=== PATIENT | female | born 1980 | race American Indian/Alaskan Native ===

== ENCOUNTER 2021-01-16 08:50 | Emergency (ER) | payer MEDICAID ==
--- NOTE | 2021-01-16 09:21 | Event Note ---
ED Screening Note Date of service: 01/16/21 Time: 09:16 ED Screening Note: 40-year-old -Faro[place] female presents to the emergency room complaining of dizziness weakness headache nausea vomiting. Patient reports a past medical history of hypertension and lupus. Patient states she does not know what blood pressure medication that she takes but just started it yesterday. Patient reports she is had a last menstrual period was 01/10/2021. Should has a primary care doctor Dr. Waqar Baez. Has had no recent hospitalization. Comes in with blood pressure 153/116 pulse was 131 99% on room air. EKG shows PVCs tachycardic. This initial assessment/diagnostic orders/clinical plan/treatment(s) is/are subject to change based on patients health status, clinical progression and re- assessment by fellow clinical providers in the ED. Further treatment and workup at subsequent clinical providers discretion. Patient/guardian urged not to elope from the ED as their condition may be serious if not clinically assessed and managed. Initial orders include: CBC CMP EKG chest x-ray TSH hCG
--- NOTE | 2021-01-16 09:30 | Emergency Department Report ---
- General Chief complaint: Weakness Stated complaint: SYNCOPE PUI?: No Time Seen by Provider: 01/16/21 09:15 Source: patient Mode of arrival: Wheelchair Limitations: No Limitations - History of Present Illness Initial comments: Chief complaint: "I feel like I am going to pass out." HPI: This is a 40-year-old female with history of hypertension and SLE who presents with lightheadedness, feeling faint. She became ill on yesterday. She feels dizzy and weak. She has shortness of breath. She had one episode of vomiting. She denies diarrhea. She has posterior dull headache. She has blurry vision with exertion. No sick contacts. No recent hospitalizations. No recent travel. She was evaluated by EMS on yesterday. She was informed that her blood pressure was high. She was not transported to medical facility. She takes prednisone 10 mg daily. She is followed by tectonophysicist at [place] [address]. Neal. She also takes 1 medication for hypertension. LMP last week. She states that she had a syncopal episode 1 to 2 months ago. She received 2 doses of [employer] vaccine several months ago. Ms. Ellison drinks 8 ounces of alcohol every other day. Has had palpitations for several months MD Complaint: generalized weakness -: Gradual, days(s) (1 day, symptoms started yesterday) Location: generalized Severity: severe Consistency: constant Worsens with: exertion Associated Symptoms: headaches, shortness of breath - Related Data Home Medications Medication Instructions Recorded Confirmed Last Taken predniSONE 10 mg (6-Day Pack, 21 10 mg DAILY 01/16/21 01/16/21 01/15/21 Tabs) Allergies Allergy/AdvReac Type Severity Reaction Status Date / Time No Known Allergies Allergy Verified 01/16/21 09:01 ED Review of Systems ROS: Stated complaint: SYNCOPE Other details as noted in HPI Comment: All other systems reviewed and negative Constitutional: malaise. denies: chills, fever Respiratory: shortness of breath. denies: cough Cardiovascular: denies: chest pain Gastrointestinal: vomiting. denies: abdominal pain, diarrhea Neurological: headache ED Past Medical Hx - Past Medical History Previous Medical History?: Yes Hx Hypertension: Yes Additional medical history: lupus - Surgical History Past Surgical History?: Yes Additional Surgical History: x2 - Social History Smoking Status: Current Every Day Smoker Substance Use Type: Alcohol - Medications Home Medications: Home Medications Medication Instructions Recorded Confirmed Last Taken Type predniSONE 10 mg (6-Day Pack, 21 10 mg DAILY 01/16/21 01/16/21 01/15/21 History Tabs) ED Physical Exam - General Limitations: No Limitations General appearance: alert, in no apparent distress - Head Head exam: Present: atraumatic, normocephalic - Eye Eye exam: Present: normal appearance - ENT ENT exam: Present: mucous membranes moist - Neck Neck exam: Present: normal inspection, full ROM - Respiratory Respiratory exam: Present: normal lung sounds bilaterally. Absent: respiratory distress, wheezes, rales, rhonchi - Cardiovascular Cardiovascular Exam: Present: normal rhythm, tachycardia, normal heart sounds. Absent: systolic murmur, diastolic murmur, rubs, gallop - GI/Abdominal GI/Abdominal exam: Present: soft, normal bowel sounds. Absent: distended, tenderness, guarding, rebound - Extremities Exam Extremities exam: Present: normal inspection - Back Exam Back exam: Present: normal inspection - Neurological Exam Neurological exam: Present: alert, oriented X3 - Psychiatric Psychiatric exam: Present: depressed, flat affect - Skin Skin exam: Present: warm, dry, intact, normal color. Absent: rash ED Course Vital Signs 01/16/21 09:01 Temperature 98 F Pulse Rate 131 H Respiratory 16 Rate Blood Pressure 153/116 [Left] O2 Sat by Pulse 99 Oximetry - EJ/Peripheral Line Arm R Time Out Performed: No Indications: nurses unable to establis, multiple IV sites needed Size: 20 Dressing Placed: Tegaderm Patient Tolerated Procedure: well Additional Comments: Procedure note: Alcohol prep: I was able to insert 20-gauge angiocatheter at the right antecubitus region. Venipuncture attempted 4 times prior to my fifth at [facility]. ED Medical Decision Making - Lab Data Result diagrams: 01/16/21 09:35 01/16/21 09:35 - EKG Data -: EKG Interpreted by Me EKG shows normal: sinus rhythm Rate: tachycardia - EKG Data 01/16/21 09:29 EKG obtained 0909 EKG interpreted by me Sinus tachycardia rate 135 bpm normal axis prolonged QTC positive LVH n onspecific ST-T wave abnormality no ST elevation - Radiology Data Radiology results: report reviewed ient Name: YAZAN ELLISON Gender: Female Date of : 1980 Referring Provider: REZA MADRID Organization: [facility] Accession Number: [id number] Requested Date: January 16, 2021 10:50 Report Status: Final Requested Procedure: 1 Procedure Description: CT abdomen pelvis w con Modality: CT Findings Reporting MD: Vikash Vanegas Dictation Time: January 16, 2021 13:04 Fiberglass Roving Winder: Not available Industrial Welder Date: CT abdomen pelvis w con INDICATION: Elevated white count abnormal liver function. COMPARISON: None TECHNIQUE: Abdominal and pelvic CT exam performed. All CT scans at this location are performed using CT dose reduction for ALARA by means of automated exposure control. FINDINGS: CT ABDOMEN and PELVIS: Lung Bases: No significant abnormality. Liver: Severe hypoattenuation of the liver. No intrahepatic biliary ductal dilation. Small areas of increased attenuation along the falciform ligament, most consistent with hepatic steatosis. There is another small region of increased attenuation along the subcapsular liver in hepatic segment 4A (image 27 series 7) which could rep resent flash filling hemangioma or focal area of sparing as well. Otherwise, is most likely benign in etiology. Biliary: No significant abnormality. Spleen: No significant abnormality. Pancreas: No significant abnormality. Adrenals: No significant abnormality. Kidneys: No significant abnormality. Lymphatics: No lymphadenopathy. Vasculature: No significant abnormality. Bowel: No significant abnormality. Pelvis: Tubal ligation devices. Osseous Structures: No aggressive osseous lesion. Additional Findings: None IMPRESSION: 1. Severe hepatic steatosis. Otherwise, no significant abnormality. Signer Name: Vikash Vanegas MD Signed: 01/16/2021 1:04 PM Workstation Name: [id number] Patient Name: YAZAN ELLISON Gender: Female Date of : 1980 Referring Provider: REZA MADRID Organization: [facility] Accession Number: [id number] Requested Date: January 16, 2021 11:10 Report Status: Final Requested Procedure: 1 Procedure Description: CT angio chest Modality: CT Findings Reporting MD: Vikash Vanegas Dictation Time: January 16, 2021 13:06 Fiberglass Roving Winder: Not available Industrial Welder Date: CT angio chest INDICATION / CLINICAL INFORMATION: Elevated D-dimer near syncope shortness of breath. TECHNIQUE: Axial CT images were obtained through the chest after injection of IV contrast. 3 plane MIP and/or 3D reconstructions were produced. All CT scans at this location are performed using CT dose reduction for ALARA by means of automated exposure control. COMPARISON: None available. FINDINGS: PULMONARY ARTERIES: No pulmonary emboli. HEART: No significant abnormality. MEDIASTINUM / YARELI: No significant abnormality. LUNGS: Very mild centrilobular nodularity demonstrating tree-in-bud morphology in the bilateral lower lobes. No pleural effusion. No pneumothorax. ADDITIONAL FINDINGS: None. UPPER ABDOMEN: No acute findings. SKELETAL STRUCTURES: No significant osseous abnormality. IMPRESSION: 1. No CT evidence for pulmonary embolism. 2. Very mild centrilobular nodularity seen within the lower lobes of the lung, most consistent with infectious etiology. Signer Name: Vikash Vanegas MD Signed: 01/16/2021 1:06 PM Workstation Name: [id number] Patient Name: YAZAN ELLISON Gender: Female Date of : 1980 Referring Provider: REZA MADRID Organization: [facility] Accession Number: [id number] Requested Date: January 16, 2021 09:24 Report Status: Final Requested Procedure: 1 Procedure Description: XR chest 1V ap Modality: XR Findings Reporting MD: Cash Ray Dictation Time: January 16, 2021 10:25 Fiberglass Roving Winder: Not available Industrial Welder Date: CHEST 1 VIEW INDICATION: dyspnea tachycardia. COMPARISON: None FINDINGS: Support devices: None. Heart: Within normal limits. Lungs/Pleura: No acute air space or interstitial disease. Additional findings: None. IMPRESSION: No acute findings. Signer Name: Cash Ray Jr, MD Signed: 01/16/2021 10:25 AM Workstation Name: [id number] - Medical Decision Making This is a 40-year-old female who presents with shortness of breath palpitations near syncope. Pulmonary embolism ruled out. EKG without evidence of dysrhythmia. Patient does have hepatic steatosis with corresponding transaminitis. Concern for alcoholic liver disease. Differential diagnosis: Viral syndrome influenza, COVID-19. Alcohol withdrawal. Leukocytosis likely reflective of chronic steroid use. Chemistry, Otherwise unremarkable troponin within normal limits. TSH lipase within normal limits. hCG negative. Recommended rest hydration. Recommended alcohol cessation use. Labs also notable for hypokalemia. Patient has dull headache without suspicion of emergent cause intracranial hemorrhage pseudotumor cerebri meningitis Critical care attestation.: If time is entered above; I have spent that time in minutes in the direct care of this critically ill patient, excluding procedure time. ED Disposition Clinical Impression: Dehydration, Viral syndrome, Hypokalemia Disposition: HOME / SELF CARE / HOMELESS Is pt being admited?: No Does the pt Need Aspirin: No Condition: Stable Instructions: Hypokalemia, Dehydration, Adult, [id number], Viral Illness, Adult Referrals: XIAO AMADOR MD [Staff Physician] - 3-5 Days
[2021-01-16 10:04] LABS: Basophils # (Auto) 0.1 K/mm3 (0.0-0.1); Basophils % (Auto) 0.5 % (0.0-1.8); Eosinophils # (Auto) 0.1 K/mm3 (0.0-0.4); Eosinophils % (Auto) 0.5 % (0.0-4.3); Hematocrit 44.5 % (30.3-42.9); Hemoglobin 14.9 gm/dl (10.1-14.3); Lymphocytes # (Auto) 1.6 K/mm3 (1.2-5.4); Lymphocytes % (Auto) 11.4 % (13.4-35.0); Mean Corpuscular HGB Conc 34 % (30-34); Mean Corpuscular Volume 101 fl (79-97); Platelet Count 211 K/mm3 (140-440); Red Blood Count 4.42 M/mm3 (3.65-5.03); Red Cell Distribution Width 13.9 % (13.2-15.2)
[2021-01-16 10:28] LABS: Alanine Aminotransferase 67 units/L (7-56); Albumin 4.6 g/dL (3.9-5); Blood Urea Nitrogen 9 mg/dL (7-17); Hemolysis Index 12
[2021-01-16 10:33] LABS: BUN/Creatinine Ratio 23
[2021-01-16] MEDS ORDERED: SODIUM CHLORIDE 0.9% 1000 ML 1,000 ML IV ONE (10:54)
--- NOTE | 2021-01-16 11:29 | XRay Report ---
CHEST 1 VIEW INDICATION: dyspnea tachycardia. COMPARISON: None FINDINGS: Support devices: None. Heart: Within normal limits. Lungs/Pleura: No acute air space or interstitial disease. Additional findings: None. IMPRESSION: No acute findings. Signer Name: Cash Ray Jr, MD Signed: 01/16/2021 11:25 AM Workstation Name: [id number]
--- NOTE | 2021-01-16 14:08 | Cat Scan Report ---
CT abdomen pelvis w con INDICATION: Elevated white count abnormal liver function. COMPARISON: None TECHNIQUE: Abdominal and pelvic CT exam performed. All CT scans at this location are performed using CT dose reduction for ALARA by means of automated exposure control. FINDINGS: CT ABDOMEN and PELVIS: Lung Bases: No significant abnormality. Liver: Severe hypoattenuation of the liver. No intrahepatic biliary ductal dilation. Small areas of i ncreased attenuation along the falciform ligament, most consistent with hepatic steatosis. There is a nother small region of increased attenuation along the subcapsular liver in hepatic segment 4A (image 27 series 7) which could represent flash filling hemangioma or focal area of sparing as well. Otherw ise, is most likely benign in etiology. Biliary: No significant abnormality. Spleen: No significant abnormality. Pancreas: No significant abnormality. Adrenals: No significant abnormality. Kidneys: No significant abnormality. Lymphatics: No lymphadenopathy. Vasculature: No significant abnormality. Bowel: No significant abnormality. Pelvis: Tubal ligation devices. Osseous Structures: No aggressive osseous lesion. Additional Findings: None IMPRESSION: 1. Severe hepatic steatosis. Otherwise, no significant abnormality. Signer Name: Vikash Vanegas MD Signed: 01/16/2021 2:04 PM Workstation Name: [id number]
--- NOTE | 2021-01-16 14:10 | Cat Scan Report ---
CT angio chest INDICATION / CLINICAL INFORMATION: Elevated D-dimer near syncope shortness of breath. TECHNIQUE: Axial CT images were obtained through the chest after injection of IV contrast. 3 plane MIP and/or 3D reconstructions were produced. All CT scans at this location are performed using CT dose reduction f or ALARA by means of automated exposure control. COMPARISON: None available. FINDINGS: PULMONARY ARTERIES: No pulmonary emboli. HEART: No significant abnormality. MEDIASTINUM / YARELI: No significant abnormality. LUNGS: Very mild centrilobular nodularity demonstrating tree-in-bud morphology in the bilateral lower lobes. No pleural effusion. No pneumothorax. ADDITIONAL FINDINGS: None. UPPER ABDOMEN: No acute findings. SKELETAL STRUCTURES: No significant osseous abnormality. IMPRESSION: 1. No CT evidence for pulmonary embolism. 2. Very mild centrilobular nodularity seen within the lower lobes of the lung, most consistent with i nfectious etiology. Signer Name: Vikash Vanegas MD Signed: 01/16/2021 2:06 PM Workstation Name: [id number]
[2021-01-16] MEDS ORDERED: HYDROcodone/ACETAMINOPHEN 5-325 MG TAB PO ONE (14:46)
[2021-01-16] MEDS ORDERED: KETOROLAC 30 MG/1 ML INJ IV ONE (14:46)
[2021-01-16 15:12] VITALS: BP 134/97
--- NOTE | 2021-01-19 14:46 | Electrocardiograph Report ---
[facility] Test Date: 2021-01-16 Test Time: 09:09:33 Pat Name: YAZAN JOSE Department: Room: Gender: F Survey Research Manager: MITCHELL : 1980 Requested By: JOANNA FELIX Order Number: [id number] Reading MD: Sidra Hernandez Measurements Intervals [place] Rate: 136 P: 65 MN: 176 QRS: 48 QRSD: 84 T: 255 QT: 335 QTc: 505 Interpretive Statements Sinus or supraventricular tachycardia Probable LVH with secondary repol abnrm No previous ECG available for comparison Electronically Signed On 01-19-2021 14:45:53 EDT by Sidra Hernandez
== END 2021-01-16 15:28 | disposition home or self-care (01) ==
LOC: ED 08:50
DX: B34.9 Viral infection, unspecified (principal); E86.0 Dehydration; E87.6 Hypokalemia; I10 Essential (primary) hypertension; M32.9 Systemic lupus erythematosus, unspecified; Z98.890 Other specified postprocedural states; F17.200 Nicotine dependence, unspecified, uncomplicated
CPT/HCPCS: 36415; 36556; 71045; 71275; 74177; 80053; 83690; 84443; 84484; 84702; 85025; 85379; 93005; 96361; 96374; 99284; J1885; J7030; Q9967

== ENCOUNTER 2021-09-11 11:47 | Emergency (ER) | payer OTHER | END 2021-09-12 | disposition left against medical advice (07) | LOC: ED 11:47 | DX: S61.451A Open bite of right hand, initial encounter (principal); Z53.21 Procedure and treatment not carried out due to patient leaving prior to being seen by health care provider; W54.0XXA Bitten by dog, initial encounter; Y93.89 Activity, other specified; Y92.89 Other specified places as the place of occurrence of the external cause; Y99.8 Other external cause status ==